=== PATIENT | male | born 1970 | race Hispanic/Latino ===

== ENCOUNTER 2022-12-08 15:03 | Outpatient (CLI) | payer BC | END 2022-12-08 15:04 | disposition home or self-care (01) | LOC: CSHEKG 15:03 | PROVIDERS: ATTEND Otolaryngology Plastic Surgery within the Head & Neck | DX: R22.1 Localized swelling, mass and lump, neck (principal) | CPT/HCPCS: 93005; 93010 ==

== ENCOUNTER 2022-12-11 09:09 | Day surgery (SDC) | payer BC ==
[2022-12-11 09:34] VITALS: BMI 19.8
[2022-12-11 10:40] LABS: SARS-CoV-2 NAA Rapid Test Not Detected (NotDetected)
[2022-12-11] MEDS ORDERED: EPINEPHrine 1 MG/ML AMP ONE (10:52)
[2022-12-11] MEDS ORDERED: Lidocaine 1% w/Epinephrine 1:100K 30 ML VIAL ONE (10:52)
[2022-12-11] MEDS ORDERED: SUGAMMADEX SODIUM 200 MG/2 ML VIAL ONE (10:55)
[2022-12-11] MEDS ORDERED: PROPOFOL 20 ML ONE (10:56)
[2022-12-11] MEDS ORDERED: Fentanyl 100 MCG/2 ML VIAL ONE (10:56)
[2022-12-11] MEDS ORDERED: Midazolam HCl 2 mg/2 ml Vial ONE ×2 (10:57→11:12)
[2022-12-11] MEDS ORDERED: Dexamethasone 20 MG/5 ML VIAL ONE (10:57)
[2022-12-11] MEDS ORDERED: Ondansetron PF 4 MG/2 ML Vial ONE (10:57)
[2022-12-11] MEDS ORDERED: Rocuronium Bromide 10 MG/ML (10ML VIAL) ONE (10:57)
[2022-12-11] MEDS ORDERED: HYDROcodone/Acetaminophen 5/325 mg Tablet ONE (13:39)
== END 2022-12-11 14:08 | disposition home or self-care (01) ==
LOC: CSHSDC 09:09
PROVIDERS: ATTEND Otolaryngology Plastic Surgery within the Head & Neck
PROC: 0CBS8ZX Excision of Larynx, Via Natural or Artificial Opening Endoscopic, Diagnostic (ICD-10-PCS; principal; 2022-12-11)
DX: C09.9 Malignant neoplasm of tonsil, unspecified (principal); J38.00 Paralysis of vocal cords and larynx, unspecified; F17.210 Nicotine dependence, cigarettes, uncomplicated; Z79.899 Other long term (current) drug therapy; Z20.822 Contact with and (suspected) exposure to COVID-19
CPT/HCPCS: 88305; 88331; 88341; 88342; 88360; J0171; J1100; J2250; J2405; J2704; J3010; U0002